=== PATIENT | female | born 1970 | race Caucasian/White ===

== ENCOUNTER → 2023-05-01 18:23 | Outpatient (REF) | payer OTHER, SELFPAY | LOC: WDC 18:23 | PROVIDERS: ATTENDING PHYSICIAN Nurse Practitioner Adult Health; FAMILY PHYSICIAN Physician Assistant Medical | DX: Z12.31 Encounter for screening mammogram for malignant neoplasm of breast (principal); Z80.3 Family history of malignant neoplasm of breast | CPT/HCPCS: 77063; 77067 ==

== ENCOUNTER → 2024-05-12 10:17 | Outpatient (REF) | payer OTHER, SELFPAY | LOC: HWWDC 10:17 | PROVIDERS: ATTENDING PHYSICIAN Nurse Practitioner Adult Health; FAMILY PHYSICIAN Physician Assistant Medical | DX: Z12.31 Encounter for screening mammogram for malignant neoplasm of breast (principal) | CPT/HCPCS: 77063; 77067 ==